=== PATIENT | female | born 1985 | race Two or more races ===

== ENCOUNTER 2016-08-31 18:01 | Emergency (ER) | payer BC, MEDICAID ==
[~2016-08-31] VITALS: Ht 160 cm; Wt 91.0 kg
[2016-08-31] MEDS ORDERED: IBUPROFEN 600MG TABLET PO ONE (19:00)
[2016-08-31 19:28] LABS: BASOPHILS % 0.8 % (0.0-2.0); EOSINOPHILS % 2.7 % (0.0-5.0); HEMATOCRIT. 37.3 % (36.0-48.0); HEMOGLOBIN. 12.6 g/dL (12.0-16.0); LYMPHOCYTES % 29.2 % (20.0-50.0); MEAN CORPUSCULAR HEMOGLOBIN 28.4 pg (28.0-32.0); MEAN CORPUSCULAR HGB CONC 33.8 g/dL (31.0-37.0); MEAN CORPUSCULAR VOLUME 84.2 fL (81.0-99.0); MEAN PLATELET VOLUME 8.9 fl (7.4-10.4); MONOCYTES % 5.8 % (2.0-8.0); NEUTROPHILS % 61.5 % (40.0-76.0); PLATELET 255 x1000/uL (130-400); RED BLOOD CELL COUNT 4.43 mill/uL (4.2-5.4); RED CELL DISTRIBUTION WIDTH 13.4 % (11.6-14.6); WHITE BLOOD COUNT 9.1 x1000/uL (4.5-11.0)
[2016-08-31 19:36] LABS: ANION GAP 12; CALCIUM 8.8 mg/dL (8.5-10.1); CARBON DIOXIDE 32 mEq/L (21-32); CHLORIDE 101 mEq/L (98-107); INDEX HEMOLYSI 1 (1-3); INDEX ICTERIC 1 (1-4); INDEX LIPEMIC 1 (1-3); UREA NITROGEN BLOOD 9 mg/dL (7-21); eGFR > 60 mL/min (>60)
[2016-08-31 22:25] VITALS: BP 138/81
== END 2016-08-31 22:31 | disposition home or self-care (01) ==
LOC: ER 19:05
DX: H00.012 Hordeolum externum right lower eyelid (principal); S92.902A Unspecified fracture of left foot, initial encounter for closed fracture; G43.909 Migraine, unspecified, not intractable, without status migrainosus; I10 Essential (primary) hypertension; Z98.51 Tubal ligation status; X58.XXXA Exposure to other specified factors, initial encounter; Y93.89 Activity, other specified; Y92.89 Other specified places as the place of occurrence of the external cause; Y99.8 Other external cause status
CPT/HCPCS: 29515; 36415; 73630; 80048; 81025; 85025; 99285; Z7610

== ENCOUNTER 2017-05-11 16:15 | Emergency (ER) | payer BC, MEDICAID ==
[~2017-05-11] VITALS: Ht 165.1 cm; Wt 92.0 kg
[2017-05-11] MEDS ORDERED: DIPHENHYDRAMINE 12.5MG/5ML UDC PO ONE (18:30)
[2017-05-11 18:32] VITALS: BP 134/86
== END 2017-05-11 19:09 | disposition home or self-care (01) ==
LOC: ER 18:39
DX: T78.40XA Allergy, unspecified, initial encounter (principal)
CPT/HCPCS: 99282; Q0163